=== PATIENT | male | born 1940 | race Caucasian/White ===

== ENCOUNTER 2022-12-29 08:44 | Emergency (ER) | payer BC ==
[~2022-12-29] VITALS: Ht 175.3 cm; Wt 104.3 kg
[2022-12-29 08:56] VITALS: BP_SYST 146; PULSE 55; RESP 18; O2SAT 98
[2022-12-29] MEDS ORDERED: AMOX500C2 PO (09:26)
[2022-12-29 09:54] VITALS: BP_SYST 143; PULSE 74; RESP 18; TEMP 97.3; O2SAT 97
== END 2022-12-29 09:57 | disposition home or self-care (01) ==
LOC: SED 08:44
DX: J02.9 Acute pharyngitis, unspecified (principal); I10 Essential (primary) hypertension; Z79.899 Other long term (current) drug therapy
CPT/HCPCS: 99283